=== PATIENT | male | born 1950 | race Caucasian/White ===

== ENCOUNTER 2016-04-20 08:32 | Outpatient (CLI) | payer MEDICARE | END 2016-04-20 08:33 | disposition home or self-care (01) | DX: D49.7 Neoplasm of unspecified behavior of endocrine glands and other parts of nervous system (principal) ==

== ENCOUNTER 2016-05-10 08:46 | Outpatient (CLI) | payer MEDICARE | END 2016-05-10 08:47 | disposition home or self-care (01) | DX: E11.8 Type 2 diabetes mellitus with unspecified complications (principal); Z79.4 Long term (current) use of insulin ==

== ENCOUNTER 2016-09-08 09:15 | Outpatient (CLI) | payer OTHER ==
[2016-09-08 18:26] LABS: HEMOGLOBIN A1C 1.39 g/dL
== END 2016-09-08 09:16 | disposition home or self-care (01) ==
LOC: LAB.F 09:15
PROVIDERS: ATTEND Family Medicine
DX: E11.65 Type 2 diabetes mellitus with hyperglycemia (principal); Z79.4 Long term (current) use of insulin
CPT/HCPCS: 36415; 83036

== ENCOUNTER 2016-10-24 08:02 | Outpatient (CLI) | payer MEDICARE, OTHER ==
[2016-10-24 19:49] LABS: BUN - BLOOD UREA NITROGEN 12 mg/dL (6-20); CALCIUM 9.7 mg/dL (8.5-10.3); CARBON DIOXIDE - CO2 24 mmol/L (21-32); CHLORIDE 102 mmol/L (101-111); CHOL/HDL RATIO 6.4 (<5.0); CHOLESTEROL 154 mg/dL; CREATININE 0.9 mg/dL (0.6-1.2); GFR - MDRD 84 (>89); GLUCOSE 194 mg/dL (70-100); HDL CHOLESTEROL 24 mg/dL; LDL/HDL RATIO 3.2 (<3.6); POTASSIUM 4.1 mmol/L (3.5-5.0); SODIUM 135 mmol/L (135-145); TRIGLYCERIDES 267 mg/dL; VLDL CHOLESTEROL 53 mg/dL
== END 2016-10-24 08:03 | disposition home or self-care (01) ==
LOC: LAB.F 08:02
PROVIDERS: ATTEND Family Medicine
DX: E78.5 Hyperlipidemia, unspecified (principal); I95.9 Hypotension, unspecified; Z11.59 Encounter for screening for other viral diseases
CPT/HCPCS: 36415; 80048; 80061; 82024; 82533; 84460; 86803

== ENCOUNTER 2017-01-31 09:19 | Outpatient (CLI) | payer OTHER ==
[2017-01-31 19:33] LABS: HEMOGLOBIN A1C 1.76 g/dL
[2017-02-03 19:56] LABS: HEPATITIS C VIRAL RNA GENOTYPE NOT DETECTED
== END 2017-01-31 09:20 | disposition home or self-care (01) ==
LOC: LAB.F 09:19
PROVIDERS: ATTEND Family Medicine
DX: R76.8 Other specified abnormal immunological findings in serum (principal); E11.65 Type 2 diabetes mellitus with hyperglycemia; Z79.4 Long term (current) use of insulin
CPT/HCPCS: 36415; 83036; 87522; 87902

== ENCOUNTER 2017-02-20 10:44 | Outpatient (CLI) | payer OTHER ==
[2017-02-20 18:59] LABS: THYROID STIMULATING HORMONE 3.21 uIU/mL (0.34-5.60)
[2017-02-20 19:01] LABS: FREE T4 (FREE THYROXINE) 0.47 ng/dL (0.58-1.64)
== END 2017-02-20 10:45 | disposition home or self-care (01) ==
LOC: LAB.F 10:44
PROVIDERS: ATTEND Internal Medicine Endocrinology, Diabetes & Metabolism
DX: E03.9 Hypothyroidism, unspecified (principal)
CPT/HCPCS: 36415; 84439; 84443

== ENCOUNTER 2017-10-11 08:10 | Outpatient (CLI) | payer MEDICARE | END 2017-10-11 08:11 | disposition home or self-care (01) | LOC: LAB.F 08:10 | PROVIDERS: ATTEND Family Medicine | DX: E27.40 Unspecified adrenocortical insufficiency (principal); E29.1 Testicular hypofunction | CPT/HCPCS: 36415; 82024; 82533; 84403 ==

== ENCOUNTER 2018-05-23 11:10 | Outpatient (CLI) | payer OTHER | END 2018-05-23 11:11 | disposition critical access hospital (66) | LOC: EMS 11:10 | PROVIDERS: ATTEND Surgery | DX: R53.1 Weakness (principal); R42 Dizziness and giddiness | CPT/HCPCS: A0425; A0427 ==

== ENCOUNTER 2018-05-23 11:33 | Emergency (ER) | payer OTHER ==
[2018-05-23] MEDS ORDERED: SODIUM CHLORIDE 0.9% 1,000 ML IV ONE ×2 (11:44→15:17)
--- NOTE | 2018-05-23 11:48 | ED Physician Documentation ---
History of Present Illness - Stated complaint Stated Complaint: WEAKNESS - Chief complaint Chief Complaint: Neuro - History obtained from History obtained from: Patient, EMS - History of Present Illness Timing: Enter time (729), Today - Additonal information Additional information: 67-year-old male who indicates that he was well until this morning when he tried to get out of bed and noticed that he was weak he was unable to stand up he is unable to assist himself out of bed. He indicates he has had some dark tarry stool for the past week. He takes Advil PM. Review of Systems Constitutional: denies: Fever Eyes: denies: Decreased vision Ears: denies: Ear pain Nose: denies: Rhinorrhea / runny nose, Congestion Throat: denies: Sore throat Cardiac: denies: Chest pain / pressure, Palpitations Respiratory: denies: Dyspnea, Cough GI: reports: Bloody / black stool. denies: Abdominal Pain, Nausea, Vomiting, Constipation, Diarrhea : reports: Incontinent. denies: Dysuria, Frequency Skin: denies: Rash Musculoskeletal: denies: Neck pain, Back pain, Extremity pain Neurologic: reports: Generalized weakness. denies: Focal weakness, Numbness PD PAST MEDICAL HISTORY - Past Medical History Endocrine/Autoimmune: Type 2 diabetes, HyPOthyroidism, Other Musculoskeletal: Other - Past Surgical History Ortho: Other - Present Medications Home Medications: Ambulatory Orders Medication Instructions Recorded Confirmed Atorvastatin Calcium 80 mg PO QPM 10/24/17 10/24/17 Glipizide 5 mg PO BID 10/24/17 10/24/17 Levothyroxine Sodium 50 mcg PO DAILY 10/24/17 10/24/17 Metformin HCl 500 mg PO BID 10/24/17 10/24/17 Testosterone [Androgel] 1.25 gm TD DAILY 10/24/17 10/24/17 - Allergies Allergies/Adverse Reactions: Allergies Allergy/AdvReac Type Severity Reaction Status Date / Time No Known Drug Allergies Allergy Verified 05/23/18 11:39 - Social History Smoking Status: Current every day smoker PD ED PE NORMAL - Vitals Vital signs reviewed: Yes (tachy and hypotensive ) - General General: Alert and oriented X 3, No acute distress, Well developed/nourished, Other (pale appearing ) - HEENT HEENT: Atraumatic, PERRL - Neck Neck: Supple, no meningeal sign, No bony TTP - Cardiac Cardiac: No murmur, Other (tachy to 100) - Respiratory Respiratory: No respiratory distress, Clear bilaterally - Abdomen Abdomen: Soft, Non tender - Rectal Rectal: Other (normal tone and brown guiac negative stool ) - Back Back: No CVA TTP, No spinal TTP - Derm Derm: Normal color, Warm and dry, No rash - Extremities Extremities: No deformity, No edema - Neuro Neuro: Alert and oriented X 3, excelsior machine feeder 2-12 intact, No motor deficit, No sensory deficit, Normal speech Eye Opening: Spontaneous Motor: Obeys Commands Verbal: Oriented GCS Score: 15 - Psych Psych: Normal mood, Normal affect Results - Vitals Vitals: Vital Signs - 24 hr 05/23/18 05/23/18 05/23/18 11:35 11:51 12:12 Temperature 37.4 C Heart Rate 109 H 90 88 Respiratory 15 30 H 21 Rate Blood Pressure 81/58 L 104/65 101/54 L O2 Saturation 97 98 95 05/23/18 13:27 Temperature Heart Rate 94 Respiratory 20 Rate Blood Pressure 106/72 O2 Saturation 97 Oxygen O2 Source Room air - EKG (time done) 1223 Rate: Rate (enter#) (86) Rhythm: NSR Intervals: RBBB QRS: Low voltage Ischemia: Non specific changes Compare to prior EKG: Old EKG unavailable Computer interpretation: Disagree with computer (I do not see ST elevation in the inferior leads) - Labs Labs: Laboratory Tests 05/23/18 05/23/18 05/23/18 12:00 12:00 12:00 WBC RBC Hgb Hct MCV MCH MCHC RDW Plt Count MPV Neut # (Auto) Lymph # (Auto) Ector # (Auto) Eos # (Auto) Baso # (Auto) Absolute Nucleated RBC Nucleated RBC % Sodium 135 Potassium 4.2 Chloride 102 Carbon Dioxide 22 Anion Gap 11.0 BUN 11 Creatinine 0.8 Estimated GFR (MDRD) 96 Glucose 116 H Lactic Acid 1.4 Calcium 8.9 Total Bilirubin 0.5 AST 36 ALT 18 Alkaline Phosphatase 39 L Troponin I < 0.04 Total Protein 6.6 L Albumin 3.7 Globulin 2.9 Albumin/Globulin Ratio 1.3 Lipase 18 L Urine Color Urine Clarity Urine pH Ur Specific [place] Urine Protein Urine Glucose (UA) Urine Ketones Urine Occult Blood Urine Nitrite Urine Bilirubin Urine Urobilinogen Ur Leukocyte Esterase Ur Microscopic Review Urine Culture Comments 05/23/18 05/23/18 12:46 13:25 WBC 3.9 L RBC 4.44 L Hgb 12.9 L Hct 38.5 L MCV 86.9 MCH 29.1 MCHC 33.5 RDW 14.1 Plt Count 176 MPV 7.7 Neut # (Auto) 2.5 Lymph # (Auto) 0.9 L Ector # (Auto) 0.3 Eos # (Auto) 0.1 Baso # (Auto) 0.0 Absolute Nucleated RBC 0.00 Nucleated RBC % 0.0 Sodium Potassium Chloride Carbon Dioxide Anion Gap BUN Creatinine Estimated GFR (MDRD) Glucose Lactic Acid Calcium Total Bilirubin AST ALT Alkaline Phosphatase Troponin I Total Protein Albumin Globulin Albumin/Globulin Ratio Lipase Urine Color YELLOW Urine Clarity CLEAR Urine pH 6.0 Ur Specific [place] 1.020 Urine Protein NEGATIVE Urine Glucose (UA) NEGATIVE Urine Ketones NEGATIVE Urine Occult Blood NEGATIVE Urine Nitrite NEGATIVE Urine Bilirubin NEGATIVE Urine Urobilinogen 0.2 (NORMAL) Ur Leukocyte Esterase NEGATIVE Ur Microscopic Review NOT INDICATED Urine Culture Comments NOT INDICATED - Rads (name of study) CT head without Radiology: Prelim report reviewed (Impression: Low density holohemispheric thin rim left-sided subdural hematoma measuring approximately 8-9 mm in thickness. 4-5 mm left right midline shift.), EMP read indepedently, See rad report Procedures - IVC sono (time) 1145 Bedside IVC sono: IVC measures (cm) (1.2), Dehydration (est 1 liter deficit.) PD MEDICAL DECISION MAKING - ED course Complexity details: reviewed old records, reviewed results, re-evaluated patient, considered differential, d/w patient ED course: 67-year-old male with a history of a prior mass has developed acute weakness and urinary incontinence today similar to what he had in February of this year. At that time his symptoms resolved within half a day and this time his symptoms have persisted. The patient was evaluated by Dr. Renae at the [facility] and the patient reports that he had a procedure done through his nose to get a biopsy and they were unable to remove the mass entirely. He indicates this was about 4 years ago. 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 After his more recent episode in February a second scan was indicated and this was delayed as it has not [facility] as yet. Dr. Dixon has accepted the patient in transfer he is administered dexamethasone 10 mg intravenously here there is a delay in bed availability. The patient has recovered some of his strength but is still unable to pull himself up in bed. Departure - Departure Disposition: 02 Transfer Acute Care Hosp Clinical Impression: Nontraumatic subacute subdural hemorrhage Condition: Stable
[2018-05-23 12:30] LABS: ALBUMIN 3.7 g/dL (3.2-5.5); ALBUMIN/GLOBULIN RATIO 1.3 (1.0-2.2); BILIRUBIN,TOTAL 0.5 mg/dL (0.2-1.0); CALCIUM 8.9 mg/dL (8.5-10.3); CREATININE 0.8 mg/dL (0.6-1.2); TOTAL PROTEIN 6.6 g/dL (6.7-8.2)
[2018-05-23 12:58] LABS: BASOPHILS % (AUTO) 0.1 %; EOSINOPHILS # (AUTO) 0.1 10^3/uL (0.0-0.7); EOSINOPHILS % (AUTO) 3.4 %; HGB - HEMOGLOBIN 12.9 g/dL (14.0-18.0); LYMPHOCYTES # (AUTO) 0.9 10^3/uL (1.5-3.5); LYMPHOCYTES % (AUTO) 23.8 %; MEAN CORPUSCULAR HEMOGLOBIN 29.1 pg (27.0-31.0); MEAN CORPUSCULAR HGB CONC 33.5 g/dL (32.0-36.0); MEAN CORPUSCULAR VOLUME 86.9 fL (80.0-94.0); MEAN PLATELET VOLUME 7.7 fL (7.4-11.4); MONOCYTES # (AUTO) 0.3 10^3/uL (0.0-1.0); MONOCYTES % (AUTO) 8.2 %; NEUTROPHILS # (AUTO) 2.5 10^3/uL (1.5-6.6); NEUTROPHILS % (AUTO) 64.5 %; PLT - PLATELET COUNT 176 10^3/uL (130-450); RED BLOOD COUNT 4.44 10^6/uL (4.70-6.10); RED CELL DISTRIBUTION WIDTH 14.1 % (12.0-15.0); WHITE BLOOD COUNT 3.9 x10^3/uL (4.8-10.8)
--- NOTE | 2018-05-23 13:34 | CT Report ---
Reason: acute general weakness hx/o subdural 1-19 Procedure Date: 05/23/2018 Accession Number: [id number] / [id number] Procedure: CT - HEAD WO CPT Code: FULL RESULT: EXAM: CT HEAD EXAM DATE: 05/23/2018 01:13 PM. CLINICAL HISTORY: Acute general weakness; history of subdural 1-19. COMPARISON: None. TECHNIQUE: Multiaxial CT images were obtained from the foramen magnum to the vertex. Reformats: Sagittal and coronal. IV contrast: None. In accordance with CT protocol optimization, one or more of the following dose reduction techniques were utilized for this exam: automated exposure control, adjustment of mA and/or KV based on patient size, or use of iterative reconstructive technique. FINDINGS: Parenchyma: No intraparenchymal hemorrhage. No evidence of mass or CT findings of infarction. Prajapati-white differentiation is distinct. Extraaxial Spaces: There is a low-density left holohemispheric thin rim subdural hematoma measuring maximally 8-9 mm in thickness over the frontoparietal convexity. There is roughly 4-5 mm of left to right midline shift. Ventricles: Normal in size and position. Sinuses and Orbits: Imaged paranasal sinuses, orbits, and mastoids show no significant abnormality. Bones: No evidence of fracture or calvarial defect. Other: None. IMPRESSION: Low-density holohemispheric thin rim left-sided subdural hematoma measuring maximally 8-9 mm in thickness. 4-5 mm of [id number] midline shift. Results called to and discussed with Dr. Nicolas Carmen in the [facility] emergency room 05/23/[address] Ben Sifuentes. KAVITA
[2018-05-23 13:38] LABS: BILIRUBIN,URINE NEGATIVE (NEGATIVE); GLUCOSE, URINE (UA) NEGATIVE (NEGATIVE); KETONES,URINE (UA) NEGATIVE (NEGATIVE); LEUKOCYTE ESTERASE, URINE NEGATIVE (NEGATIVE); NITRITE,URINE NEGATIVE (NEGATIVE); OCCULT BLOOD,URINE NEGATIVE (NEGATIVE); PROTEIN,URINE NEGATIVE (NEGATIVE); UROBILINOGEN,URINE 0.2 (NORMAL) E.U./dL (NORMAL)
[2018-05-23 13:39] LABS: CLARITY,URINE CLEAR (CLEAR)
[2018-05-23] MEDS ORDERED: DEXAMETHASONE 10 MG/ML VIAL PO STA (13:43)
--- NOTE | 2018-05-23 13:45 | XRAY Report ---
Reason: weakness and hypotension Procedure Date: 05/23/2018 Accession Number: [id number] / [id number] Procedure: XR - Chest 1 View X-Ray CPT Code: 78031 FULL RESULT: EXAM: CHEST RADIOGRAPHY EXAM DATE: 05/23/2018 01:30 PM. CLINICAL HISTORY: Weakness and hypotension. COMPARISON: CHEST TECHNIQUE: AP view x2. Projection is lordotic. FINDINGS: Lungs/Pleura: No focal opacities evident. No pleural effusion. No pneumothorax. Mediastinum: Heart size is normal. There is tortuosity in the descending thoracic aorta. Other: None. IMPRESSION: 1. Lungs are clear. 2. Tortuosity in the descending thoracic aorta. RADIA
[2018-05-23 16:17] VITALS: BP 102/67
== END 2018-05-23 18:40 | disposition short-term general hospital (02) ==
LOC: EDUNIT# → ED 11:33
DX: I62.02 Nontraumatic subacute subdural hemorrhage (principal); I45.10 Unspecified right bundle-branch block; E11.9 Type 2 diabetes mellitus without complications; E03.9 Hypothyroidism, unspecified; F17.200 Nicotine dependence, unspecified, uncomplicated
CPT/HCPCS: 36415; 70450; 71045; 80053; 81001; 81003; 83605; 83690; 84484; 85025; 87040; 87086; 93005; 96360; 96361; 99284

== ENCOUNTER 2018-06-19 11:52 | Outpatient (CLI) | payer OTHER ==
--- NOTE | 2018-06-20 09:44 | CT Report ---
Reason: SUBDURAL HEMATOMA EVACUATION Procedure Date: 06/19/2018 Accession Number: [id number] / [id number] Procedure: CT - HEAD WO CPT Code: FULL RESULT: EXAM: CT HEAD EXAM DATE: 06/19/2018 12:29 PM. CLINICAL HISTORY: Follow-up subdural hematoma COMPARISON: 05/23/2018, 12/13/2006. TECHNIQUE: Multiaxial CT images were obtained from the foramen magnum to the vertex. Reformats: Sagittal and coronal. IV contrast: None. In accordance with CT protocol optimization, one or more of the following dose reduction techniques were utilized for this exam: automated exposure control, adjustment of mA and/or KV based on patient size, or use of iterative reconstructive technique. FINDINGS: Stable ventricular size and position noting mild age-related tissue loss and minimal midline shift to the right. Asymmetric dilatation of the right temporal horn is also unchanged. There is a stable left low-attenuation extra-axial collection with minimal mass-effect on the subjacent brain not appreciably changed in 8.5 mm maximal thickness compared to the prior study 08/10. A soft tissue mass involving the right sella and cavernous sinus region with adjacent bony change is also stable compared with 05/23/2018. It is difficult to say if there has been significant interval change compared to the CT of 2006. No significant new findings. IMPRESSION: 1. Stable size left low-attenuation extra-axial collection with minimal rightward midline shift when compared with 05/23/2018. 2. Stable right cavernous sinus and sellar mass compared with 05/23/2018. Difficult to say if there has been a significant size change since 12/13/2006. 3. No significant new findings compared with 05/23/2018. RADIA
== END 2018-06-19 11:53 | disposition home or self-care (01) ==
LOC: DI 11:52
PROVIDERS: ATTEND Psychiatry & Neurology Neurology
DX: I62.00 Nontraumatic subdural hemorrhage, unspecified (principal)
CPT/HCPCS: 70450

== ENCOUNTER 2020-06-21 09:49 | Outpatient (CLI) | payer OTHER ==
--- NOTE | 2020-06-21 10:48 | XRAY Report ---
PROCEDURE: Chest 2 View X-Ray INDICATIONS: COUGH TECHNIQUE: 2 view(s) of the chest. COMPARISON: None. FINDINGS: Surgical changes and devices: None. Lungs and pleura: No pleural effusions or pneumothorax. Lungs are abnormal, with focal radiodensity at the left lung base just above the dome of the diaphragm. The appearances are nonspecific and coul d represent pneumonia or a indistinctly marginated neoplasm. Mediastinum: Mediastinal contours are normal except for a small hiatal. Heart size is normal. Bones and chest wall: No suspicious bony abnormalities. Soft tissues appear unremarkable. IMPRESSION: Left lower lobe pneumonia, versus neoplasm. Pneumonia is considered more likely by trisha coon on the frontal view. Please correlate clinically and if there are signs and symptoms worrisome for neoplasm follow-up by CT scanning at this time may be warranted. Alternatively, follow-up by repe at 2 view chest in 2 weeks after treatment. Hiatal hernia noted behind the heart. Dominant O Reviewed by: Chema Bates MD on 06/21/2020 10:47 AM PDT Approved by: Chema Bates MD on 06/21/2020 10:47 AM PDT Station ID: [id number]
== END 2020-06-21 09:50 | disposition home or self-care (01) ==
LOC: DI 09:49
PROVIDERS: ATTEND Family Medicine
DX: R91.8 Other nonspecific abnormal finding of lung field (principal); K44.9 Diaphragmatic hernia without obstruction or gangrene

== ENCOUNTER 2020-07-08 10:54 | Outpatient (CLI) | payer OTHER ==
[2020-07-08] MEDS ORDERED: IOVERSOL 320 100 ML VIAL IVP ONE ×2 (11:14→12:45)
[2020-07-08 11:26] LABS: ALBUMIN 4.2 g/dL (3.2-5.5); CALCIUM 9.3 mg/dL (8.5-10.3); PHOSPHORUS 4.3 mg/dL (2.5-4.6); POTASSIUM 4.1 mmol/L (3.5-5.0)
--- NOTE | 2020-07-08 15:59 | CT Report ---
PROCEDURE: CHEST W INDICATIONS: NEOPLASM OF LEFT LOWEWR LOBE OF LUNG CONTRAST: IV CONTRAST: Optiray 320 ml: 100 PO CONTRAST: *NO PO CONTRAST TECHNIQUE: After the administration of intravenous contrast, 5 mm thick sections acquired from the pulmonary api steph to the posterior costophrenic angles. 7 mm thick coronal MIP reformats were acquired. For radia tion dose reduction, the following was used: automated exposure control, adjustment of mA and/or kV according to patient size. COMPARISON: Chest x-ray 2 view, 06/21/2020. FINDINGS: Image quality: Excellent. Lungs and pleura: No acute air space opacities. No pleural effusions or pneumothorax. Central and peripheral airways are patent and normal in caliber. Mediastinum: Heart size is normal. Moderate coronary artery calcification. No pericardial effusion. No mediastinal or hilar adenopathy by size criteria. Thoracic aorta and central pulmonary arteries are normal in size. Esophagus is normal in caliber. There is a aldobctt-fz-obzla sized hiatal herni a. Bones and chest wall: No suspicious bony lesions. No vertebral body compression fractures. No axil elizabeth or supraclavicular adenopathy by size criteria. The thyroid is normal in size and there are no incidental findings.. Abdomen: There multiple renal cysts bilaterally. Hepatic steatosis. Cholecystectomy.. IMPRESSION: 1. No residual or recurrent lung cancer. 2. No lymphadenopathy. 3. A xjkacrbo-rq-xhiaa sized hiatal hernia. Reviewed by: Sylvie Cerda MD on 07/08/2020 3:58 PM PDT Approved by: Sylvie Cerda MD on 07/08/2020 3:58 PM PDT Station ID: [id number]
== END 2020-07-08 10:55 | disposition home or self-care (01) ==
LOC: DI 10:54
PROVIDERS: ATTEND Family Medicine
DX: K44.9 Diaphragmatic hernia without obstruction or gangrene (principal); D49.1 Neoplasm of unspecified behavior of respiratory system
CPT/HCPCS: 36415; 71260; 80069; Q9967

== ENCOUNTER 2021-11-04 18:27 | Outpatient (CLI) | payer OTHER ==
--- NOTE | 2021-11-04 15:13 | XRAY Report ---
PROCEDURE: Chest 2 View X-Ray INDICATIONS: PRODUCTIVE COUGH TECHNIQUE: 2 view(s) of the chest. COMPARISON: Chest x-ray, 06/21/2020. Chest CT, 07/08/2009 21. FINDINGS: Surgical changes and devices: None. Lungs and pleura: No pleural effusions or pneumothorax. Lungs are clear. Mediastinum: Mediastinal contours are normal. Heart size is normal. Large hiatal hernia. Bones and chest wall: No suspicious bony abnormalities. Soft tissues appear unremarkable. IMPRESSION: 1. No acute cardiomegaly disease. 2. Large hiatal hernia. Reviewed by: Sylvie Cerda MD on 11/04/2021 3:12 PM PDT Approved by: Sylvie Cerda MD on 11/04/2021 3:12 PM PDT Station ID: [id number]
[2021-11-04 19:50] LABS: HCT - HEMATOCRIT 43.4 % (42.0-52.0); HGB - HEMOGLOBIN 13.9 g/dL (14.0-18.0); MEAN CORPUSCULAR HEMOGLOBIN 28.3 pg (27.0-31.0); MEAN CORPUSCULAR VOLUME 88.4 fL (80.0-94.0); MEAN PLATELET VOLUME 11.6 fL (7.4-11.4); RED BLOOD COUNT 4.91 10^6/uL (4.70-6.10); RED CELL DISTRIBUTION WIDTH 13.1 % (12.0-15.0)
[2021-11-04 20:07] LABS: CALCIUM 9.7 mg/dL (8.5-10.3); CREATININE 1.2 mg/dL (0.6-1.2); POTASSIUM 4.7 mmol/L (3.5-5.0)
== END 2021-11-04 18:28 | disposition home or self-care (01) ==
LOC: DI.S 18:27
PROVIDERS: ATTEND Physician Assistant
DX: R05.9 Cough, unspecified (principal); K44.9 Diaphragmatic hernia without obstruction or gangrene; R09.89 Other specified symptoms and signs involving the circulatory and respiratory systems
CPT/HCPCS: 36415; 80048; 83880; 85027